=== PATIENT | female | born 1990 | race Caucasian/White ===

== ENCOUNTER 2018-12-27 01:42 | Emergency (ER) | payer SELFPAY ==
[2018-12-27 01:53] VITALS: BP 133/75
--- NOTE | 2018-12-27 03:11 | EDM.PDOC ---
ED HPI GENERAL MEDICAL PROBLEM - General Chief Complaint: General Stated Complaint: DIZZY DRY MOUTH Time Seen by Provider: 12/27/18 01:49 Source of Information: Reports: Patient, Family (), RN Notes Reviewed History Limitations: Reports: No Limitations - History of Present Illness INITIAL COMMENTS - FREE TEXT/NARRATIVE: The patient states that she woke around midnight feeling lightheaded, with a dry mouth, and tingling and numbness all over her body, including to her face. She states that her head felt like it was going to explode. She felt short of breath, and her legs felt weak when she tried to walk. She called the paramedics , but her symptoms had essentially resolved by the time they arrived. She states that her symptoms had lasted about 10 minutes. She states that the paramedics checked her vitals, which were normal, therefore the left. She states that her symptoms returned to a lesser degree, and has been waxing and waning since, wherefore she decided to come to the ED to be evaluated. Here in the ED, she states that she feels essentially back to normal. The patient denies having the exact symptoms previously, but states that she felt lightheaded and had a near syncopal episode a few months ago. Those symptoms lasted about 10 minutes before resolving. She did not seek medical evaluation. The patient reports she has had a cold since 12/23/2018, and has been taking DayQuil by day, and NyQuil by night. Her most recent dose of NyQuil was around 21:00. The patient does not have a PCP. 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 ED EXAM, GENERAL - Physical Exam Exam: See Below Exam Limited By: No Limitations General Appearance: Alert, WD/WN, No Apparent Distress Eye Exam: Bilateral Eye: EOMI, Normal Inspection Ears: Normal External Exam, Hearing Grossly Normal Nose: Normal Inspection Throat/Mouth: Normal Inspection, Normal Lips, Normal Voice, No Airway Compromise Head: Atraumatic, Normocephalic Neck: Normal Inspection, Full Range of Motion Respiratory/Chest: No Respiratory Distress, Lungs Clear, Normal Breath Sounds, No Accessory Muscle Use Cardiovascular: Normal Peripheral Pulses, Regular Rate, Rhythm, No Edema, No Gallop, No JVD, No Murmur, No Rub Peripheral Pulses: 4+: Radial (L), Radial (R) GI/Abdominal: Normal Bowel Sounds, Soft, Non-Tender, No Organomegaly, No Distention, No Abnormal Bruit, No Mass (Female) Exam: Deferred Rectal (Female) Exam: Deferred Back Exam: Normal Inspection, Full Range of Motion, NT Extremities: Normal Inspection, Normal Range of Motion, No Pedal Edema, Normal Capillary Refill Neurological: Alert, Oriented, Normal Cognition, No Motor/Sensory Deficits Psychiatric: Anxious Skin Exam: Warm, Dry, Intact, Normal Color, No Rash Course - Vital Signs Last Recorded V/S: Last Vital Signs Temp 36.8 C 12/27/18 01:48 Pulse 84 12/27/18 01:48 Resp 20 12/27/18 01:48 BP 133/75 12/27/18 01:48 Pulse Ox 95 12/27/18 01:48 - Re-Assessments/Exams Free Text/Narrative Re-Assessment/Exam: 12/27/18 03:02 By history, the patient was suffering from hyperventilation earlier. Her symptoms have improved and largely resolved by now. I offered to perform a hyperventilation panel, however, the patient declined, which I don't disagree with. Since this is the first or second time that this has happened to her, no specific treatment is required, however, if her symptoms persist or recur, she may benefit from treatment for anxiety. I will refer her to Dr. Cruz as a PCP. Departure - Departure Time of Disposition: 03:03 Disposition: Home, Self-Care 01 Condition: Good Clinical Impression: Hyperventilation syndrome - Discharge Information *PRESCRIPTION DRUG MONITORING PROGRAM REVIEWED*: Not Applicable *COPY OF PRESCRIPTION DRUG MONITORING REPORT IN PATIENT MONA: Not Applicable Referrals: Mindi Cruz MD [Physician] - Additional Instructions: You were seen in the emergency room for waking with the sensation of lightheadedness, tingling and numbness all of your body, including your face and hands, a dry mouth, shortness of breath, and the sensation of weak legs. By history, your symptoms were most likely caused by hyperventilation. Hyperventilation is usually caused by anxiety or a panic attack, although can, in rare cases, because by other medical conditions. A workup to evaluate for other medical conditions was offered, but declined. If your symptoms persist or recur, we recommend that you follow-up with Dr. Mindi Cruz, to discuss treatment options for anxiety. If any other problems, or if you want to reconsider being medically evaluated, please do not hesitate to return to the ER.
== END 2018-12-27 03:10 | disposition home or self-care (01) ==
LOC: JD.ED 01:42
DX: F45.8 Other somatoform disorders (principal); Z98.890 Other specified postprocedural states; Z91.011 Allergy to milk products
CPT/HCPCS: 99283

== ENCOUNTER 2019-03-24 14:44 | Emergency (ER) | payer OTHER ==
[2019-03-24 14:59] VITALS: BP 124/82
--- NOTE | 2019-03-24 15:04 | EDM.PDOC ---
ED HPI GENERAL MEDICAL PROBLEM - General Chief Complaint: Cardiovascular Problem Stated Complaint: HEART RACING Time Seen by Provider: 03/24/19 15:03 - History of Present Illness INITIAL COMMENTS - FREE TEXT/NARRATIVE: 28-year-old female presents emergency room with recent heart. This occurs at different times today she noticed it when she was driving and found it quite disturbing. She's had issues were wakes her up at night and she feels somewhat anxious. She does not have associated chest pain chest pressure with this no shortness of breath however feels anxious at times when this occurs not necessarily all the time. This is bothering the point where she actually went part-time on her job and then eventually quit her job. She is in the process of getting this evaluated and is scheduled to have a 30 day event monitor placed. - Related Data Allergies Allergy/AdvReac Type Severity Reaction Status Date / Time lactose AdvReac Stomach Verified 03/24/19 14:59 Upset Home Meds: Home Meds . 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 Denies: Agitation, Depression ED EXAM, GENERAL - Physical Exam Exam: See Below Exam Limited By: No Limitations General Appearance: Alert, No Apparent Distress Head: Atraumatic, Normocephalic Neck: Normal Inspection, Supple, Non-Tender, Full Range of Motion. No: Lymphadenopathy (L), Lymphadenopathy (R), Thyromegaly Respiratory/Chest: No Respiratory Distress, Lungs Clear, Normal Breath Sounds Cardiovascular: Regular Rate, Rhythm, No Edema, No Murmur GI/Abdominal: Normal Bowel Sounds, Soft, Non-Tender EKG INTERPRETATION EKG Date: 03/24/19 Rhythm: Other (Anus rhythm however early in EKG she appears to have a potential atrial focus with a mildly increased heart rate P wave morphology is clearly different) [place]: Normal P-Wave: Present QRS: Normal ST-T: Normal QT: Normal Comparison: NA - No Prior EKG Course - Vital Signs Last Recorded V/S: Last Vital Signs Temp 36.9 C 03/24/19 14:55 Pulse 120 H 03/24/19 14:55 Resp 16 03/24/19 14:55 BP 124/82 03/24/19 14:55 Pulse Ox 100 03/24/19 14:55 - Orders/Labs/Meds Orders: Active Orders 24 hr Category Date Time Status EKG Documentation Completion [RC] STAT Care 03/24/19 15:20 Active Labs: Laboratory Tests 03/24/19 Range/Units 15:35 Sodium 142 (136-145) mEq/L Potassium 3.7 (3.5-5.1) mEq/L Chloride 105 (98-107) mEq/L Carbon Dioxide 26 (21-32) mEq/L Anion Gap 14.7 (5-15) BUN 13 (7-18) mg/dL Creatinine 0.7 (0.55-1.02) mg/dL Est Cr Clr Drug Dosing 91.09 mL/min Estimated GFR (MDRD) > 60 (>60) mL/min BUN/Creatinine Ratio 18.6 H (14-18) Glucose 143 H (74-106) mg/dL Calcium 9.4 (8.5-10.1) mg/dL Magnesium 1.9 (1.8-2.4) mg/dl TSH 3rd Generation 1.378 (0.358-3.74) uIU/mL - Re-Assessments/Exams Free Text/Narrative Re-Assessment/Exam: 03/24/19 17:26 Metabolic panel magnesium and TSH are within normal limits. EKG did show what looks like an ectopic atrial focus early in EKG formally a few beats of this will be best if it can be demonstrated on a longer rhythm strip. Beta dennis therapy may be very beneficial for this patient however with an upcoming event monitor would not want to start it at this time. Departure - Departure Time of Disposition: 17:18 Disposition: Home, Self-Care 01 Clinical Impression: Tachyarrhythmia Referrals: Laila Freedman MD [Primary Care Provider] - Forms: ED Department Discharge Additional Instructions: Return to the emergency room with any questions problems worsening symptoms. Your workup today's pretty much unrevealing other than the EKG shows what may represent a ectopic atrial origin of the faster heartbeat. Only a few beats were captured on EKG so it's hard to be certain I agree with getting the event monitor you have scheduled coming up. Anxiety and other stresses could be a potential stimulator of this and needs to be considered. - My Orders Last 24 Hours: My Active Orders 03/24/19 15:20 EKG Documentation Completion [RC] STAT - Assessment/Plan Last 24 Hours: My Active Orders 03/24/19 15:20 EKG Documentation Completion [RC] STAT
== END 2019-03-24 17:30 | disposition home or self-care (01) ==
LOC: JD.ED 14:44
DX: R00.0 Tachycardia, unspecified (principal); Z91.011 Allergy to milk products
CPT/HCPCS: 36415; 80048; 83735; 84443; 93005; 99285-25